=== PATIENT | female | born 1955 | race Caucasian/White ===

== ENCOUNTER 2019-06-07 09:16 | Emergency (ER) | payer BC, OTHER ==
[2019-06-07 09:39] VITALS: BP 122/75
--- NOTE | 2019-06-07 10:04 | UC ---
Dizzy HPI HPI Summary: dizziness x 1 day woke up this morning with dizziness , symptoms are moderated 6 out of 10 worse with walking and head movement better with rest , + nausea , no vomiting no chest pain , no sob , no fever, no chills - History Of Current Complaint Chief Complaint: UCDizziness Stated Complaint: DIZZY Time Seen by Provider: 06/07/19 09:48 Hx Obtained From: Patient Hx Last Menstrual Period: n/a Onset/Duration: Gradual Onset, Lasting Days - 1, Still Present Timing: Constant Severity Initially: Moderate Severity Currently: Moderate Pain Intensity: 0 Character: Dizzy Aggravating Factor(s): Exertion, Position Change Alleviating Factor(s): Rest Associated Signs And Symptoms: Positive: Nausea, Unsteady Gait. Negative: Vomiting, Chest Pain, SOB, Palpitations, Visual Changes, Decreased Oral Intake, Change In Medication, Change In Diet, OTC Medications - Allergies/Home Medications Allergies/Adverse Reactions: Allergies Allergy/AdvReac Type Severity Reaction Status Date / Time No Known Allergies Allergy Verified 06/07/19 09:34 Home Medications: Home Medications Calcium Carbonate [Calcium] 500 mg PO DAILY 06/07/19 [History Confirmed 06/07/19 ] [place]-3 Fatty Acids (Nf) [Fish Oil (NF)] 1,000 mg PO DAILY 06/07/19 [History Confirmed 06/07/19] Vitamin THERAPEUTIC TAB* [Theragran TAB*] 1 tab PO DAILY 06/07/19 [History Confirmed 06/07/19] risperiDONE TAB* [RisperDAL*] 2 mg PO DAILY 06/07/19 [History Confirmed 06/07/19 ] PMH/Surg Hx/FS Hx/Imm Hx - Additional Past Medical History Additional PMH: Anxiety, Arthritis, GERD, Mental Health Hospitalization Psychological History: Anxiety - Surgical History Surgical History: Yes Surgery Procedure, Year, and Place: Cholecystectomy, ~2016, [place] - Family History Known Family History: Positive: None Negative: Seizure Disorder - Social History Alcohol Use: None Substance Use Type: None Smoking Status (MU): Former Smoker Type: Cigarettes Length of Time of Smoking/Using Tobacco: 1/2 PPD x 7 Years When Did the Patient Quit Smoking/Using Tobacco: ~1978 - Immunization History Most Recent Influenza Vaccination: 06/2017 Vaccination Up to Date: Yes Review of Systems All Other Systems Reviewed And Are Negative: Yes Constitutional: Positive: Negative Skin: Positive: Negative Eyes: Positive: Negative ENT: Positive: Negative Respiratory: Positive: Negative Is Patient Immunocompromised?: No Physical Exam Triage Information Reviewed: Yes Appearance: Well-Appearing, No Pain Distress, Well-Nourished Vital Signs: Initial Vital Signs Temp 97.9 F 06/07/19 09:33 Pulse 88 06/07/19 09:33 Resp 18 06/07/19 09:33 BP 122/75 06/07/19 09:33 Pulse Ox 98 06/07/19 09:33 Vital Signs Reviewed: Yes Eye Exam: Normal Eyes: Positive: Conjunctiva Clear ENT: Positive: Normal ENT inspection, Hearing grossly normal, Pharynx normal, TMs normal Neck: Positive: Supple, Nontender, No Lymphadenopathy Respiratory: Positive: Chest non-tender, Lungs clear, Normal breath sounds Cardiovascular: Positive: RRR, No Murmur, Pulses Normal Abdominal Exam: Normal Abdomen Description: Positive: Nontender, Soft Bowel Sounds: Positive: Present Musculoskeletal Exam: Normal Neurological: Positive: Alert UC Physical Exam Vital Signs On Initial Exam: Initial Vitals Temp Pulse Resp BP Pulse Ox 97.9 F 88 18 122/75 98 06/07/19 09:33 06/07/19 09:33 06/07/19 09:33 06/07/19 09:33 06/07/19 09:33 - Neurological Exam Neurological: Normal, Sensory/Motor Intact, Alert, Oriented to Person Place, Time, CN Intact II-III, Normal Gait, Speech Normal Dizzy Course/Dx - Differential Dx/Diagnosis Provider Diagnosis: Vertigo Discharge ED - Sign-Out/Discharge Documenting (check all that apply): Patient Departure All imaging exams completed and their final reports reviewed: No Studies - Discharge Plan Condition: Stable Disposition: HOME Prescriptions: Meclizine TAB* [Antivert 12.5 TAB*] 25 mg PO TID PRN #15 tab PRN Reason: Dizziness Patient Education Materials: Vertigo (ED) Referrals: Chana Kim MD [Primary Care Provider] - 5 Days - Billing Disposition and Condition Condition: STABLE Disposition: Home
== END 2019-06-07 10:05 | disposition home or self-care (01) ==
LOC: UCCORT 09:16
DX: R42 Dizziness and giddiness (principal); R11.0 Nausea; R26.81 Unsteadiness on feet; Z87.891 Personal history of nicotine dependence
CPT/HCPCS: 99212; G0463